=== PATIENT | male | born 1975 | race Caucasian/White ===

== ENCOUNTER 2020-09-01 11:24 | Emergency (ER) | payer OTHER ==
[~2020-09-01] VITALS: Ht 172.7 cm; Wt 86.2 kg
--- NOTE | 2020-09-01 11:27 | NUR ---
patient brought in by RA Shaan MD at bedside for assessment, patient complaints of left turner/leg pain since this morning
[2020-09-01] MEDS ORDERED: KETOROLAC TROMETHAMINE 15 MG INJ ONE (11:38)
[2020-09-01] MEDS ORDERED: KETOROLAC TROMETHAMINE 15 MG INJ IM ONE (11:45)
[2020-09-01] MEDS ORDERED: IBUP-1955 PO (12:00)
--- NOTE | 2020-09-01 13:19 | NUR ---
Left turner wrapped in FABRIZIO wrap and patient given crutches and education on proper crutches use, able to ambulate with steady gait, no signs of acute distress noted. Patient discharged to home in stable condition. Written and verbal after care instructions given. Patient verbalizes understanding of instructions. Stressed follow up or return to ER for worsening s/s.
[2020-09-01 13:23] VITALS: BP 137/83
== END 2020-09-01 13:20 | disposition home or self-care (01) ==
LOC: ER 11:24
DX: S86.112A Strain of other muscle(s) and tendon(s) of posterior muscle group at lower leg level, left leg, initial encounter (principal); X50.9XXA Other and unspecified overexertion or strenuous movements or postures, initial encounter; Y93.B9 Activity, other involving muscle strengthening exercises; Y92.89 Other specified places as the place of occurrence of the external cause
CPT/HCPCS: 73590; 93971; 96372; 99284; J1885; A4663

== ENCOUNTER 2021-01-02 09:45 | Emergency (ER) | payer OTHER ==
[~2021-01-02] VITALS: Ht 172.7 cm; Wt 90.7 kg
[~2021-01-02 09:45] MED LIST: IBUP-1955 PO
[2021-01-02 10:04] LABS: *BILIRUBIN,URIN NEGATIVE (NEGATIVE); *BLOOD, URINE NEGATIVE (NEGATIVE); *CLARITY,URINE CLEAR (CLEAR); *COLOR,URINE YELLOW (YELLOW); *KETONES,URINE NEGATIVE (NEGATIVE); *UROBILINOGEN,URINE 0.2 E.U./dl (NORMAL); LEUKOCYTE ESTERASE ,URINE NEGATIVE (NEGATIVE); NITRITE, URINE NEGATIVE (NEGATIVE); UGLUCOSE NEGATIVE (NEGATIVE)
[2021-01-02] MEDS ORDERED: CEFTRIAXONE 500 MG VIAL IM ONE (11:00)
[2021-01-02] MEDS ORDERED: AZITHROMYCIN 250 MG TABLET PO ONE (11:00)
[2021-01-02] MEDS ORDERED: AZITHROMYCIN 250 MG TABLET ONE (11:08)
[2021-01-02] MEDS ORDERED: CEFTRIAXONE 500 MG VIAL ONE (11:08)
[2021-01-02] MEDS ORDERED: LIDOCAINE HCL 1% 20 ML VIAL ONE (11:08)
[2021-01-02] MEDS ORDERED: ALBUTEROL SULFATE 2.5 MG/3 ML NEBU ONE (12:26)
[2021-01-02] MEDS ORDERED: IPRATROPIUM BROMIDE 0.5 MG/2.5 ML NEBU ONE (12:26)
[2021-01-02] MEDS ORDERED: LEVO500T90 PO (12:29)
--- NOTE | 2021-01-02 12:34 | NUR ---
Patient discharged to home in stable condition. Written and verbal after care instructions given. Patient verbalizes understanding of instructions. Stressed follow up or return to ER for worsening s/s.
[2021-01-02 12:36] VITALS: BP 123/81
[2021-01-04 14:06] LABS: *GC NAA Negative (Negative)
[2021-01-06 08:06] LABS: *TRIC.VAG. NAA Negative (Negative)
== END 2021-01-02 12:36 | disposition home or self-care (01) ==
LOC: ER 09:45
DX: N45.1 Epididymitis (principal); Z86.19 Personal history of other infectious and parasitic diseases
CPT/HCPCS: 76870; 81003; 87491; 96372; 99284; J0696; J3490; A4663; J3590; Q0144

== ENCOUNTER 2021-08-23 22:38 | Emergency (ER) | payer OTHER ==
[~2021-08-23] VITALS: Ht 167.6 cm; Wt 83.9 kg
[~2021-08-23 22:38] MED LIST changes: +LEVO500T90 PO
--- NOTE | 2021-08-23 22:45 | NUR ---
Dr domingo at bedside, MSE in progress.
[2021-08-24] MEDS ORDERED: D-ME473S63 PO (03:10)
--- NOTE | 2021-08-24 03:16 | NUR ---
Patient discharged to home in stable condition. Written and verbal after care instructions given. Patient verbalizes understanding of instructions. Stressed follow up or return to ER for worsening s/s. pt ambulated with steady gait. denies pain. no SOB. no chest pain. AOx4
[2021-08-24 03:17] VITALS: BP 110/60
== END 2021-08-24 03:18 | disposition home or self-care (01) ==
LOC: ER 22:40
DX: J20.9 Acute bronchitis, unspecified (principal); Z20.822 Contact with and (suspected) exposure to COVID-19
CPT/HCPCS: 71046; A4663

== ENCOUNTER 2021-11-05 23:47 | Emergency (ER) | payer MEDICAID, OTHER ==
[~2021-11-05] VITALS: Ht 167.6 cm; Wt 80.7 kg
[~2021-11-05 23:47] MED LIST changes: +D-ME473S63 PO
--- NOTE | 2021-11-06 00:48 | NUR ---
ERMD gave verbal ACI to patient. Patient did not want to wait for ACI.
== END 2021-11-06 01:05 | disposition home or self-care (01) ==
LOC: ER 23:58
DX: L73.9 Follicular disorder, unspecified (principal); Z96.649 Presence of unspecified artificial hip joint
CPT/HCPCS: A4663

== ENCOUNTER 2021-12-16 20:47 | Emergency (ER) | payer MEDICAID ==
[~2021-12-16] VITALS: Ht 167.6 cm; Wt 79.4 kg
--- NOTE | 2021-12-16 21:40 | NUR ---
PATIENT WALKED INTO ER WITH A STEADY GAIT. NAD NOTED. A/O X4.
--- NOTE | 2021-12-16 21:50 | NUR ---
DR. BAXTER AT BEDSIDE. MSE IN PROGRESS.
[2021-12-16] MEDS ORDERED: OXYC-128 PO (22:23)
--- NOTE | 2021-12-16 22:26 | NUR ---
Patient discharged to home in stable condition. Written and verbal after care instructions given. Patient verbalizes understanding of instructions. Stressed follow up or return to ER for worsening s/s. Patient out of ER with steady gait, no acute signs of distress, VSS, all belongings taken.
[2021-12-16 22:27] VITALS: BP 99/62
== END 2021-12-16 22:27 | disposition home or self-care (01) ==
LOC: ER 20:47
DX: T14.90XA Injury, unspecified, initial encounter (principal); V43.53XA Car driver injured in collision with pick-up truck in traffic accident, initial encounter; Y92.410 Unspecified street and highway as the place of occurrence of the external cause; Z96.641 Presence of right artificial hip joint; M25.512 Pain in left shoulder
CPT/HCPCS: A4663

== ENCOUNTER 2022-05-11 22:15 | Emergency (ER) | payer OTHER ==
[~2022-05-11] VITALS: Ht 167.6 cm; Wt 83.5 kg
[~2022-05-11 22:15] MED LIST changes: +OXYC-128 PO
[2022-05-12] MEDS ORDERED: LORA-259 PO (02:01)
[2022-05-12 03:04] VITALS: BP 115/70
== END 2022-05-12 03:06 | disposition home or self-care (01) ==
LOC: ER 22:15
DX: G47.00 Insomnia, unspecified (principal); R53.81 Other malaise; R41.0 Disorientation, unspecified; R53.1 Weakness; R05.3 Chronic cough; R25.1 Tremor, unspecified; Z96.649 Presence of unspecified artificial hip joint; Z20.822 Contact with and (suspected) exposure to COVID-19
CPT/HCPCS: A4663